=== PATIENT | male | born 1975 | race Caucasian/White ===

== ENCOUNTER 2017-08-26 12:00 | Emergency (ER) | payer MEDICAID ==
[2017-08-26 12:49] VITALS: BP 137/90
== END 2017-08-26 12:49 | disposition home or self-care (01) ==
LOC: ED 12:00
DX: S05.02XA Injury of conjunctiva and corneal abrasion without foreign body, left eye, initial encounter (principal); R03.0 Elevated blood-pressure reading, without diagnosis of hypertension; J45.909 Unspecified asthma, uncomplicated; X58.XXXA Exposure to other specified factors, initial encounter; Y93.89 Activity, other specified; Y92.89 Other specified places as the place of occurrence of the external cause; Y99.8 Other external cause status

== ENCOUNTER 2018-02-13 10:22 | Emergency (ER) | payer MEDICAID ==
[~2018-02-13] VITALS: Ht 165.1 cm; Wt 96.6 kg
[2018-02-13 10:32] VITALS: Ht 165.1 cm; Wt 96.6 kg
[2018-02-13 11:51] VITALS: BP 125/87
== END 2018-02-13 11:51 | disposition home or self-care (01) ==
LOC: ED 10:22
DX: M54.5 Low back pain (principal); J45.909 Unspecified asthma, uncomplicated
CPT/HCPCS: J1885

== ENCOUNTER 2018-04-18 18:25 | Emergency (ER) | payer MEDICAID ==
[~2018-04-18] VITALS: Ht 165.1 cm; Wt 97.5 kg
[2018-04-18 18:36] VITALS: Ht 165.1 cm; Wt 97.5 kg
[2018-04-18 19:45] LABS: BASOPHIL % 0.4 % (0-2); PLATELET COUNT 313 x10^3mcL (130-400); RED CELL DISTRIBUTION WIDTH 13.4 % (11.5-14.5)
[2018-04-18 19:53] LABS: CARBON DIOXIDE 25.3 mmol/L (21-32); CHLORIDE SERUM 105 mmol/L (98-107); CREATININE SERUM 0.8 mg/dL (0.7-1.3); GFR1 > 60 mL/min; GLUCOSE SERUM 104 mg/dL (74-106); POTASSIUM SERUM 3.7 mmol/L (3.5-5.1); SODIUM SERUM 142 mmol/L (136-145)
[2018-04-18 23:13] VITALS: BP 128/81
== END 2018-04-18 23:13 | disposition home or self-care (01) ==
LOC: ED 18:25
PROVIDERS: Emergency Medicine
DX: R07.89 Other chest pain (principal); J45.909 Unspecified asthma, uncomplicated
CPT/HCPCS: 36415; 83880; J1885